=== PATIENT | male | born 1955 | race Caucasian/White ===

== ENCOUNTER 2018-08-30 17:26 | Inpatient (IN) | payer OTHER ==
[~2018-08-30] VITALS: Ht 180.3 cm; Wt 92.5 kg
--- NOTE | ~2018-08-30 | P ---
[facility] [place] [address] PROCEDURE REPORT Name: ÁNGEL CERRATO V Room #: 459-P ADM IN .R.#: [id number] Admission: 08/30/18 Attend Phys: Sumeet Alan MD Discharge: Date of : 59 Report #: [id number] THIS REPORT FOR: //name// CC: [facility] physician/PCP Sumeet Alan MD DATE OF SERVICE: 09/07/2018 PROCEDURE PERFORMED: ERCP. HISTORY OF PRESENT ILLNESS: The patient is a 63-year-old male who was admitted with abdominal pain, elevated liver function test, nausea and vomiting; initially underwent a CT scan of the abdomen and pelvis, which showed portal vein thrombosis, which was new. The patient had a previous history of chronic hepatitis C, reportedly treated successfully at the [facility] years ago. Possible history of cirrhosis on liver biopsy. No evidence of cirrhosis on CT. However, he also had an abnormality in the right hepatic lobe, occult cholangiocarcinoma should be excluded. The patient's CA 19-9 level was elevated in the 700 range as well as a CEA being elevated. His alpha fetoprotein was normal. He did have an increase in his bilirubin from 2.8 on admission to 5.1 today and yesterday, it was 4.8. AST yesterday 139, alkaline phosphatase 339 and ALT was 123. The patient was placed on heparin initially and then later Coumadin. His INR was high yesterday at 6. He has received several units of FFP. INR is 1.5 today. Platelet count was 45,000 earlier today and he did receive a 10-pack of platelets today as well. Hemoglobin 12.8 and WBC is 3.7. The patient had a PIPIDA scan on September 04. There was nonvisualization of the bile duct, gallbladder and small bowel, could represent diffuse hepatocellular disease or complete biliary obstruction. We therefore proceeded with an MRI of his abdomen on the , which showed right portal vein thrombosis and dilated right bile ducts again noted. Acute truncation of the right biliary ductal system appears present in the harley hepatis with a 9 mm small mass in this area. This mass was not well defined even on pre-contrast or post-contrast MRI images. Plan therefore is ERCP. DESCRIPTION OF PROCEDURE: The risks and benefits of the procedure were explained to the patient and those risks including but not limited to bleeding, perforation and the risk of sedation as well as potential risk for posterior or superior pancreatitis. The patient understood these risks and gave informed consent. He was given 1 gram of Ancef prior to the procedure. The procedure was performed under general anesthesia in the Interventional Radiology suite. Next, using a standard Olympus side-viewing ERCP scope, the scope was placed in the patient's mouth and advanced under direct vision through the esophagus, stomach and into the second portion, at which point the major papilla was identified and normal in appearance. There was no evidence of bile flow. Next, using a Hussein-Cook 0.025 dome tipped catheter, the common bile duct was [address] [address] PROCEDURE REPORT Name: BLOSSOMÁNGEL V Room #: 459-P ADM IN M.R.#: [id number] Admission: 08/30/18 Attend Phys: Sumeet Alan MD Discharge: Date of : 59 Report #: [id number] attempted to be cannulated. The PD was cannulated multiple times. Despite trying multiple different techniques, I was not successful and cannulating the common bile duct. I therefore tried a 0.021 again multiple times, never obtaining a cholangiogram. PD again was cannulated several times. At this point, after trying for over an hour, felt it was best to discontinue the procedure. At this point, the catheter was withdrawn and the scope was withdrawn and the procedure was terminated. The patient tolerated the procedure well. IMPRESSION: 1. Unsuccessful cannulation of the common bile duct despite multiple attempts as described above. 2. Pancreatic duct cannulated multiple times, was normal in appearance. RECOMMENDATIONS: 1. Observe the patient post-procedure. 2. Advance diet. 3. We would recommend having Dr. Orta at [facility] or Dr. Garcia at [facility], proceed with an ERCP with [facility] in the near future potentially as an outpatient as long as the patient is tolerating his diet and his labs are stable. Thank you for allowing me to participate in his care. <ELECTRONICALLY SIGNED> By: Tarik Dobbs MD 09/12/18 0956 [id number] Tarik Dobbs MD /nt
--- NOTE | ~2018-08-30 | HC ---
[facility] [place] [address] CONSULTATION Name: ÁNGEL CERRATO Kumar Room #: 45- ADM IN M.R.#: [id number] Admission: 08/30/18 Attend Phys: Sumeet Alan MD Discharge: Date of : 59 Report #: [id number] THIS REPORT FOR: //name// CC: [facility] physician/PCP Sumeet Alan HISTORY OF PRESENT ILLNESS: This patient 89 is seen in regard to an elevated CA 19-9 titer. He was admitted emergently with epigastric abdominal pain and subsequent studies have been performed including CT scanning of the abdomen, which revealed a portal vein thrombosis. CA 19-9 titer has been performed, which was elevated over 700, but no distinct pancreatic mass has been found on his imaging studies. PAST MEDICAL HISTORY: Significant for previously treated hepatitis C and cirrhosis. He had a previous biopsy of an adrenal mass. FAMILY HISTORY: Negative for any known prior GI malignancies. SOCIAL HISTORY: Nondrinker, cigarette smoker. MEDICATIONS: As listed on the MFR. ALLERGIES: He has no known allergies. REVIEW OF SYSTEMS: As in the history of present illness with no recent weight loss. He suddenly developed abdominal pain few days prior to his hospitalization. This was not relieved with antacids. Remaining system review is negative. PHYSICAL EXAMINATION: GENERAL: Shows him to be alert. HEENT: Normocephalic. NECK: Supple. CHEST: Clear. CARDIOVASCULAR: Normal S1, S2. ABDOMEN: Soft. EXTREMITIES: No clubbing, cyanosis, edema. NEUROLOGIC: No focal localized signs. PSYCHIATRIC: Not agitated or confused. LYMPHATICS: Revealed no palpable supraclavicular lymphadenopathy. LABORATORY STUDIES: Showed thrombocytopenia along with liver function abnormalities and a diminished albumin of 3.0. IMAGING DATA: His MRI shows 2 small filling defects within the bile duct in addition to the portal vein thrombosis. [facility] [address] [place] [address] CONSULTATION Name: ÁNGEL CERRATO V Room #: 459-P [facility]#: [id number] Admission: 08/30/18 Attend Phys: Sumeet Alan MD Discharge: Date of : 59 Report #: [id number] ASSESSMENT: Elevated CA 19-9. PLAN: We have discussed that while sensitive and usually elevated/abnormal in patients with cancer of the pancreas, this tumor marker can also be seen in other adenocarcinomas, especially of GI origin and could represent cholangiocarcinoma. It is also, however, elevated and cholangitis and other inflammatory conditions are not specific for malignancy. An ERCP is planned and we will await those results. Thanks for asking us to be involved in his care. <ELECTRONICALLY SIGNED> By: Latoya Zendejas MD 09/13/18 1501 [id number] Latoya Zendejas MD /nt
--- NOTE | ~2018-08-30 | P ---
[facility] [place] [address] PROCEDURE REPORT Name: ÁNGEL CERRATO V Room #: 459-P [facility] IN .R.#: [id number] Admission: 08/30/18 Attend Phys: Sumeet Alan MD Discharge: Date of : 59 Report #: [id number] THIS REPORT FOR: //name// CC: [facility] physician/PCP Sumeet Alan MD DATE OF SERVICE: 09/03/2018 PROCEDURE PERFORMED: Upper endoscopy. HISTORY OF PRESENT ILLNESS: The patient is a 63-year-old male who was admitted for midepigastric abdominal pain. He has a history of hepatitis C, possible cirrhosis of the liver, treated in the past successfully reportedly at a different facility. He has been having pain only with eating food. Liquid tends to not cause his issues. He had a CT scan of the abdomen and pelvis, which showed a portal vein thrombosis, which is a new finding. CEA level is negative. Plan is for EGD. DESCRIPTION OF PROCEDURE: The risks and benefits of the procedure were explained to the patient, those risks including but not limited to bleeding, perforation and the risk of sedation. He understood these risks and gave informed consent. Sedation was given using propofol per anesthesia. Next, using a standard Olympus upper endoscope, the scope was placed in the patient's mouth and advanced under direct vision through the esophagus, stomach and into the second portion of the duodenum. The larynx was normal in appearance. The esophagus was normal throughout. The GE junction was normal. No evidence of esophagitis. No evidence of esophageal varices. Overall, the gastric mucosa was normal in the body and the antrum. Mild gastritis was noted in the fundus. No evidence of erosions or ulcerations. The pylorus was normal and patent. The duodenal bulb, first and second portion were all normal. The scope was then withdrawn and the procedure terminated. The patient tolerated the procedure well. IMPRESSION: 1. Mild gastritis. 2. Otherwise, normal upper endoscopy. RECOMMENDATIONS: The patient reports abdominal pain only after eating a substantial meal. I reviewed the CT scan with the radiologist. There is no evidence of mesenteric stenosis from the celiac or SMA. There is evidence of some fluid around the gallbladder. We will therefore recommend proceeding with a PIPIDA scan next, which will need to be done tomorrow as the patient has had propofol today. [address] [address] PROCEDURE REPORT Name: ÁNGEL CERRATO V Room #: 459-P [facility] IN ..#: [id number] Admission: 08/30/18 Attend Phys: Sumeet Alan MD Discharge: Date of : 59 Report #: [id number] Thank you for allowing me to participate in his care. <ELECTRONICALLY SIGNED> By: Tarik Dobbs MD 09/04/18 1759 [id number] Tarik Dobbs MD /nt
[2018-08-30 17:27] VITALS: BP 133/84
[2018-08-30 17:49] LABS: ICTOTEST (BILI CONFIRMATORY) Positive (Negative); URINE BILIRUBIN 2+ (Negative); URINE BLOOD NEGATIVE (Negative); URINE CLARITY CLEAR; URINE COLOR BROWN; URINE GLUCOSE-RANDOM* NEGATIVE (Negative); URINE KETONES TRACE (Negative); URINE LEUKOCYTES-REFLEX NEGATIVE (Negative); URINE NITRITE-REFLEX POSITIVE (Negative); URINE PROTEIN (DIPSTICK) TRACE (Negative); URINE SPECIFIC GRAVITY >= 1.030 (1.005-1.035)
[2018-08-30 18:01] LABS: SQUAMOUS None Seen /LPF (0-3)
[2018-08-30 18:02] LABS: BACTERIA-REFLEX 1-9 Few /HPF (None Seen); CASTS None Seen /LPF (None Seen); CRYSTALS None Seen /LPF (None Seen); URINE RBC None Seen /HPF (0-2); URINE WBC-REFLEX None Seen /HPF (0-5)
[2018-08-30 18:27] LABS: CALCIUM 9.6 mg/dL (8.5-10.1); POTASSIUM 4.1 mmol/L (3.5-5.1)
[2018-08-30 18:33] LABS: ALBUMIN 3.6 g/dL (3.4-5.0); TOTAL BILIRUBIN 2.8 mg/dL (<0.1-1.0); TOTAL PROTEIN 8.3 g/dL (6.4-8.2)
[2018-08-30 18:38] LABS: ABSOLUTE NEUTROPHILS 6.2 thou/uL (1.4-8.2); BASOPHILS 0.6 % (0.0-2.0); EOSINOPHILS 1.3 % (0.0-3.0); HEMATOCRIT 46.4 % (42.0-52.0); HEMOGLOBIN 16.1 gm/dL (14.0-18.0); LYMPHOCYTES 17.4 % (24.0-44.0); MCH 32.7 pg (26.0-34.0); MCHC 34.7 g/dL (28.0-37.0); MCV 94.3 fL (80.0-100.0); MONOCYTES 10.6 % (1.0-8.0); PLATELET COUNT 107 thou/uL (150-400); POLYS 70.1 % (36.0-66.0); RBC 4.92 mil/uL (4.50-6.00); RDW 12.9 % (10.5-14.5); WBC 8.9 thou/uL (4.0-11.0)
[2018-08-30 21:29] LABS: PROTIME 10.7 Seconds (9.3-11.4)
[2018-08-30 21:30] VITALS: BP 167/86
[2018-08-30 23:02] VITALS: BP 134/74
[2018-08-30 23:19] VITALS: BP 130/84
[2018-08-31 00:21] LABS: HEMATOCRIT 43.2 % (42.0-52.0); HEMOGLOBIN 15.3 gm/dL (14.0-18.0); MCH 33.5 pg (26.0-34.0); MCHC 35.4 g/dL (28.0-37.0); MCV 94.7 fL (80.0-100.0); RBC 4.56 mil/uL (4.50-6.00); RDW 13.1 % (10.5-14.5); WBC 6.8 thou/uL (4.0-11.0)
[2018-08-31 06:10] LABS: HEMOGLOBIN 14.5 gm/dL (14.0-18.0); MCH 33.5 pg (26.0-34.0); MCHC 35.3 g/dL (28.0-37.0); MCV 94.8 fL (80.0-100.0); RBC 4.32 mil/uL (4.50-6.00); RDW 12.9 % (10.5-14.5); WBC 6.9 thou/uL (4.0-11.0)
[2018-08-31 06:29] LABS: ANION GAP 12 mmol/L (7-16); BUN 13 mg/dL (7-18); CALCIUM 8.5 mg/dL (8.5-10.1); CHLORIDE 102 mmol/L (98-107); CHOLESTEROL 202 mg/dL (<200); CO2 23 mmol/L (21-32); CREATININE 0.7 mg/dL (0.7-1.3); GLUCOSE 237 mg/dL (74-106); HDL CHOLESTEROL 31 mg/dL (>40); LDL CHOLESTEROL 154 mg/dL (<100); POTASSIUM 3.9 mmol/L (3.5-5.1); SGOT 43 U/L (15-37); SGPT 54 U/L (30-65); SODIUM 137 mmol/L (136-145); TC:HDL 6.5 Ratio (Not establshd); TOTAL BILIRUBIN 1.9 mg/dL (<0.1-1.0); TRIGLYCERIDE 87 mg/dL (<150); VLDL 17 mg/dL (<40)
[2018-08-31 07:27] VITALS: BP 135/72
[2018-08-31 16:12] VITALS: BP 141/82
[2018-08-31 19:40] VITALS: BP 138/81
[2018-08-31 23:07] LABS: GLYCOHEMOGLOBIN (HGB A1C) 10.3 % (4.8-5.6)
[2018-09-01 05:50] LABS: HEMATOCRIT 38.5 % (42.0-52.0); HEMOGLOBIN 13.2 gm/dL (14.0-18.0); MCH 32.5 pg (26.0-34.0); MCHC 34.4 g/dL (28.0-37.0); MCV 94.5 fL (80.0-100.0); RBC 4.08 mil/uL (4.50-6.00); RDW 12.9 % (10.5-14.5); WBC 5.1 thou/uL (4.0-11.0)
[2018-09-01 05:57] LABS: CALCIUM 8.5 mg/dL (8.5-10.1); CREATININE 0.8 mg/dL (0.7-1.3); POTASSIUM 3.9 mmol/L (3.5-5.1)
[2018-09-01 07:20] VITALS: BP 144/77
[2018-09-01 16:15] VITALS: BP 172/66
[2018-09-01 19:30] VITALS: BP 170/92
[2018-09-02 06:34] LABS: HEMATOCRIT 38.3 % (42.0-52.0)
[2018-09-02 06:37] LABS: HEMOGLOBIN 13.5 gm/dL (14.0-18.0); MCH 33.5 pg (26.0-34.0); MCHC 35.3 g/dL (28.0-37.0); MCV 94.8 fL (80.0-100.0); RBC 4.04 mil/uL (4.50-6.00); RDW 12.9 % (10.5-14.5); WBC 11.4 thou/uL (4.0-11.0)
[2018-09-02 06:46] LABS: APTT 33.3 Seconds (24.5-32.8); INR 1.1; PROTIME 11.2 Seconds (9.3-11.4)
[2018-09-02 06:48] LABS: CREATININE 0.7 mg/dL (0.7-1.3); POTASSIUM 4.6 mmol/L (3.5-5.1)
[2018-09-02 07:21] VITALS: BP 131/75
[2018-09-03 05:26] LABS: HEMATOCRIT 40.5 % (42.0-52.0); HEMOGLOBIN 14.2 gm/dL (14.0-18.0); MCH 33.2 pg (26.0-34.0); MCV 94.8 fL (80.0-100.0); RBC 4.28 mil/uL (4.50-6.00); RDW 12.7 % (10.5-14.5); WBC 5.5 thou/uL (4.0-11.0)
[2018-09-03 05:38] LABS: APTT 47.8 Seconds (24.5-32.8); INR 1.4
[2018-09-03 05:39] LABS: CREATININE 0.7 mg/dL (0.7-1.3); POTASSIUM 4.1 mmol/L (3.5-5.1)
[2018-09-03 07:30] VITALS: BP 133/76
[2018-09-03 12:20] VITALS: BP 127/74
[2018-09-03 19:20] VITALS: BP 151/885
[2018-09-04 05:46] LABS: HEMATOCRIT 44.7 % (42.0-52.0); HEMOGLOBIN 15.4 gm/dL (14.0-18.0); MCH 32.6 pg (26.0-34.0); MCHC 34.4 g/dL (28.0-37.0); MCV 94.7 fL (80.0-100.0); RBC 4.72 mil/uL (4.50-6.00); RDW 13.1 % (10.5-14.5); WBC 7.2 thou/uL (4.0-11.0)
[2018-09-04 05:57] LABS: CALCIUM 9.3 mg/dL (8.5-10.1); POTASSIUM 4.2 mmol/L (3.5-5.1)
[2018-09-04 06:00] LABS: PROTIME 20.7 Seconds (9.3-11.4)
[2018-09-04 07:10] VITALS: BP 128/66
[2018-09-04 12:58] LABS: ALBUMIN 3.1 g/dL (3.4-5.0); DIRECT BILIRUBIN 4.4 mg/dL (<0.1-0.3); TOTAL BILIRUBIN 5.1 mg/dL (<0.1-1.0); TOTAL PROTEIN 6.8 g/dL (6.4-8.2)
[2018-09-04 17:57] VITALS: BP 139/75
[2018-09-04 19:49] VITALS: BP 137/74
[2018-09-05 06:10] LABS: CREATININE 0.8 mg/dL (0.7-1.3); POTASSIUM 4.2 mmol/L (3.5-5.1)
[2018-09-05 06:23] LABS: HEMATOCRIT 41.8 % (42.0-52.0); HEMOGLOBIN 15.2 gm/dL (14.0-18.0); MCH 34.3 pg (26.0-34.0); MCHC 36.4 g/dL (28.0-37.0); RBC 4.45 mil/uL (4.50-6.00); WBC 6.5 thou/uL (4.0-11.0)
[2018-09-05 07:15] VITALS: BP 128/73
[2018-09-05 09:48] LABS: INR 5.5
[2018-09-05 09:49] LABS: PROTIME 54.5 Seconds (9.3-11.4)
[2018-09-05 12:47] LABS: ALBUMIN 3.2 g/dL (3.4-5.0); DIRECT BILIRUBIN 3.7 mg/dL (<0.1-0.3); TOTAL BILIRUBIN 4.7 mg/dL (<0.1-1.0); TOTAL PROTEIN 7.6 g/dL (6.4-8.2)
[2018-09-05 16:35] VITALS: BP 135/85
[2018-09-05 19:05] VITALS: BP 131/60
[2018-09-06 05:52] LABS: PROTIME 59.6 Seconds (9.3-11.4)
[2018-09-06 07:52] VITALS: BP 156/92
[2018-09-06 09:12] LABS: HEMATOCRIT 41.5 % (42.0-52.0); HEMOGLOBIN 14.6 gm/dL (14.0-18.0); MCH 33.4 pg (26.0-34.0); MCHC 35.2 g/dL (28.0-37.0); RBC 4.37 mil/uL (4.50-6.00); RDW 13.3 % (10.5-14.5); WBC 6.1 thou/uL (4.0-11.0)
[2018-09-06 09:28] LABS: ALBUMIN 3.1 g/dL (3.4-5.0); CALCIUM 8.9 mg/dL (8.5-10.1); CREATININE 0.8 mg/dL (0.7-1.3); MAGNESIUM 1.9 mg/dL (1.8-2.4); TOTAL BILIRUBIN 4.8 mg/dL (<0.1-1.0); TOTAL PROTEIN 7.5 g/dL (6.4-8.2)
[2018-09-06 10:50] VITALS: BP 141/85; BP 145/78
[2018-09-06 12:26] VITALS: BP 135/81; BP 141/85; BP 154/90
[2018-09-06 14:36] LABS: PROTIME 23.3 Seconds (9.3-11.4)
[2018-09-06 14:41] LABS: INR 2.3
[2018-09-06 17:46] VITALS: BP 143/85; BP 145/85
[2018-09-06 18:12] VITALS: BP 143/85
[2018-09-07 04:10] VITALS: BP 124/63
[2018-09-07 05:35] LABS: HEMOGLOBIN 12.8 gm/dL (14.0-18.0); WBC 3.7 thou/uL (4.0-11.0)
[2018-09-07 05:36] LABS: HEMATOCRIT 37.3 % (42.0-52.0); MCH 32.4 pg (26.0-34.0); MCHC 34.2 g/dL (28.0-37.0); MCV 94.8 fL (80.0-100.0); RBC 3.94 mil/uL (4.50-6.00); RDW 13.2 % (10.5-14.5)
[2018-09-07 05:46] LABS: CALCIUM 8.7 mg/dL (8.5-10.1); CREATININE 0.8 mg/dL (0.7-1.3); MAGNESIUM 1.8 mg/dL (1.8-2.4); POTASSIUM 4.3 mmol/L (3.5-5.1)
[2018-09-07 06:38] LABS: PROTIME 20.2 Seconds (9.3-11.4)
[2018-09-07 07:15] VITALS: BP 116/62
[2018-09-07 09:55] VITALS: BP 126/70; BP 128/70; BP 130/70
[2018-09-07 12:57] LABS: INR 1.5; PROTIME 15.5 Seconds (9.3-11.4)
[2018-09-07 21:20] VITALS: BP 131/70
[2018-09-08 03:22] VITALS: BP 140/69
[2018-09-08 05:40] LABS: HEMATOCRIT 38.5 % (42.0-52.0); HEMOGLOBIN 13.6 gm/dL (14.0-18.0); MCH 33.3 pg (26.0-34.0); MCHC 35.2 g/dL (28.0-37.0); MCV 94.7 fL (80.0-100.0); RBC 4.07 mil/uL (4.50-6.00); RDW 12.9 % (10.5-14.5); WBC 6.1 thou/uL (4.0-11.0)
[2018-09-08 05:49] LABS: POTASSIUM 4.4 mmol/L (3.5-5.1)
[2018-09-08 07:45] VITALS: BP 134/66
[2018-09-08 11:23] LABS: URINE BILIRUBIN NEGATIVE (Negative); URINE BLOOD NEGATIVE (Negative); URINE CLARITY CLEAR; URINE GLUCOSE-RANDOM* 3+ (Negative); URINE KETONES NEGATIVE (Negative); URINE LEUKOCYTES-REFLEX NEGATIVE (Negative); URINE NITRITE-REFLEX NEGATIVE (Negative); URINE PROTEIN (DIPSTICK) NEGATIVE (Negative); URINE SPECIFIC GRAVITY 1.025 (1.005-1.035); URINE UROBILINOGEN 0.2 E.U./dl (0.2-1.0)
[2018-09-08 11:26] LABS: URINE COLOR AMBER
[2018-09-08 15:22] VITALS: BP 143/63
[2018-09-08 19:37] VITALS: BP 117/69
[2018-09-09 03:33] VITALS: BP 109/63
[2018-09-09 05:51] LABS: HEMATOCRIT 35.6 % (42.0-52.0); HEMOGLOBIN 12.2 gm/dL (14.0-18.0); MCH 32.8 pg (26.0-34.0); MCHC 34.4 g/dL (28.0-37.0); MCV 95.5 fL (80.0-100.0); RBC 3.72 mil/uL (4.50-6.00); WBC 6.9 thou/uL (4.0-11.0)
[2018-09-09 06:02] LABS: CALCIUM 9.2 mg/dL (8.5-10.1); CREATININE 0.7 mg/dL (0.7-1.3); MAGNESIUM 1.8 mg/dL (1.8-2.4); POTASSIUM 3.9 mmol/L (3.5-5.1)
[2018-09-09 07:29] VITALS: BP 118/56
[2018-09-09 08:52] LABS: INR 1.1; PROTIME 11.6 Seconds (9.3-11.4)
[2018-09-09 15:07] VITALS: BP 122/60
[2018-09-09 20:17] VITALS: BP 146/89
[2018-09-10 05:32] VITALS: BP 141/79
[2018-09-10 06:07] LABS: HEMATOCRIT 37.3 % (42.0-52.0); HEMOGLOBIN 12.9 gm/dL (14.0-18.0); MCH 32.6 pg (26.0-34.0); MCHC 34.4 g/dL (28.0-37.0); MCV 94.6 fL (80.0-100.0); RBC 3.94 mil/uL (4.50-6.00); RDW 12.9 % (10.5-14.5); WBC 5.2 thou/uL (4.0-11.0)
[2018-09-10 06:13] LABS: INR 1.1; PROTIME 10.9 Seconds (9.3-11.4)
[2018-09-10 06:17] LABS: CALCIUM 9.1 mg/dL (8.5-10.1); CREATININE 0.7 mg/dL (0.7-1.3); MAGNESIUM 1.7 mg/dL (1.8-2.4)
[2018-09-10 08:00] VITALS: BP 154/81
[2018-09-10 15:42] VITALS: BP 100/46
[2018-09-10 19:58] VITALS: BP 111/66
[2018-09-11 03:21] VITALS: BP 142/77
[2018-09-11 06:15] LABS: PROTIME 10.7 Seconds (9.3-11.4)
[2018-09-11 07:26] VITALS: BP 130/76
[2018-09-11 14:00] VITALS: BP 134/64
[2018-09-11 19:09] VITALS: BP 133/69
[2018-09-12 04:14] VITALS: BP 128/72
[2018-09-12 07:50] VITALS: BP 138/81
[2018-09-12 14:15] VITALS: BP 128/80
[2018-09-12 14:30] LABS: TOTAL BILIRUBIN 1.7 mg/dL (<0.1-1.0); TOTAL PROTEIN 7.2 g/dL (6.4-8.2)
[2018-09-12 19:47] VITALS: BP 144/80
[2018-09-13] VITALS (7 sets, daily range): BP systolic 116–141; BP diastolic 67–89
[2018-09-13 05:42] LABS: INR 1.1; PROTIME 10.8 Seconds (9.3-11.4)
[2018-09-14 04:36] VITALS: BP 131/82
[2018-09-14 04:44] VITALS: BP 116/79
[2018-09-14 06:13] LABS: HEMATOCRIT 39.2 % (42.0-52.0); HEMOGLOBIN 13.9 gm/dL (14.0-18.0); MCH 33.5 pg (26.0-34.0); MCHC 35.4 g/dL (28.0-37.0); MCV 94.6 fL (80.0-100.0); RBC 4.14 mil/uL (4.50-6.00); RDW 12.9 % (10.5-14.5); WBC 7.3 thou/uL (4.0-11.0)
[2018-09-14 06:45] LABS: DIRECT BILIRUBIN 0.9 mg/dL (<0.1-0.3); TOTAL BILIRUBIN 1.6 mg/dL (<0.1-1.0); TOTAL PROTEIN 7.2 g/dL (6.4-8.2)
[2018-09-14 08:00] VITALS: BP 132/78
[2018-09-14] MEDS ORDERED: PROTONIX40 M1 PO (15:45)
[2018-09-14] MEDS ORDERED: PERCOCET PO (15:45)
[2018-09-14] MEDS ORDERED: COUMADIN 2.5MG2.5 M1 PO (15:45)
[2018-09-14] MEDS ORDERED: METFORMIN HCL500 MG PO (15:46)
[2018-09-14 16:00] VITALS: BP 152/85
[2018-09-14 16:55] VITALS: BP 152/85
== END 2018-09-14 20:30 | disposition home or self-care (01) | DRG 441 ==
LOC: ER 17:26 → EROBS 20:49 → 4W 20:49
PROVIDERS: Emergency Medicine; Hospitalist; Internal Medicine; Internal Medicine Gastroenterology; Nurse Practitioner; Nurse Practitioner Family; Specialist
PROC: 0DJ08ZZ Inspection of Upper Intestinal Tract, Via Natural or Artificial Opening Endoscopic (ICD-10-PCS; principal; 2018-09-03)
PROC: 30233K1 Transfusion of Nonautologous Frozen Plasma into Peripheral Vein, Percutaneous Approach (ICD-10-PCS; 2018-09-06)
PROC: 30233L1 Transfusion of Nonautologous Fresh Plasma into Peripheral Vein, Percutaneous Approach (ICD-10-PCS; 2018-09-06)
PROC: 0FJD8ZZ Inspection of Pancreatic Duct, Via Natural or Artificial Opening Endoscopic (ICD-10-PCS; 2018-09-07)
PROC: 30233R1 Transfusion of Nonautologous Platelets into Peripheral Vein, Percutaneous Approach (ICD-10-PCS; 2018-09-13)
PROC: 0F9980Z Drainage of Common Bile Duct with Drainage Device, Via Natural or Artificial Opening Endoscopic (ICD-10-PCS; 2018-09-13)
PROC: BF101ZZ Fluoroscopy of Bile Ducts using Low Osmolar Contrast (ICD-10-PCS; 2018-09-13)
PROC: 0F798DZ Dilation of Common Bile Duct with Intraluminal Device, Via Natural or Artificial Opening Endoscopic (ICD-10-PCS; 2018-09-13)
DX: I81 Portal vein thrombosis (principal); E43 Unspecified severe protein-calorie malnutrition; K85.90 Acute pancreatitis without necrosis or infection, unspecified; N39.0 Urinary tract infection, site not specified; D68.9 Coagulation defect, unspecified; K80.51 Calculus of bile duct without cholangitis or cholecystitis with obstruction; K74.60 Unspecified cirrhosis of liver; K29.70 Gastritis, unspecified, without bleeding; F17.210 Nicotine dependence, cigarettes, uncomplicated; B19.20 Unspecified viral hepatitis C without hepatic coma; R74.0 Nonspecific elevation of levels of transaminase and lactic acid dehydrogenase [LDH]; E78.00 Pure hypercholesterolemia, unspecified; E11.9 Type 2 diabetes mellitus without complications; D69.6 Thrombocytopenia, unspecified; D72.819 Decreased white blood cell count, unspecified; E80.6 Other disorders of bilirubin metabolism; Z79.01 Long term (current) use of anticoagulants; Z68.28 Body mass index [BMI] 28.0-28.9, adult; Z79.899 Other long term (current) drug therapy
CPT/HCPCS: 10045; 10047; 62110; 62900; 70005